=== PATIENT | male | born 1995 | race Caucasian/White ===

== ENCOUNTER 2019-11-06 18:32 | Emergency (ER) | payer OTHER ==
[~2019-11-06] VITALS: Ht 172.7 cm; Wt 81.7 kg
[2019-11-06 18:53] VITALS: BP 120/66
--- NOTE | 2019-11-08 09:00 | EKG ---
[facility] [place] [address] ELECTROCARDIOGRAM REPORT Name: RACHEL JAIN Room #: DEP MCecilyRCecily#: [id number] Admission: 11/06/19 Attend Phys: Discharge: 11/06/19 Date of : [birth year] Report #: [id number] THIS REPORT FOR: cc: FAM - No family physician/PCP FAM - No family physician/PCP Theo Franco MD [facility] THIS REPORT FOR: //name// [facility] ED Test Date: 2019-11-06 Test Time: 18:47:23 Pat Name: RACHEL JAIN Department: Patient ID: [id number]- Room: Gender: M [employer] Liaison: [facility] : 1995 Requested By: John Stewart Order Number: [id number] MD: Theo Franco Measurements Intervals [place] Rate: 77 P: 66 [place]: 149 QRS: 74 QRSD: 87 T: 65 QT: 356 QTc: 403 Interpretive Statements Sinus rhythm ST elevation suggests early repolarization No previous ECG available for comparison Electronically Signed On 11-08-2019 9:00:36 CDT by Theo Franco [email or web address] <ELECTRONICALLY SIGNED> By: Theo Franco MD, [facility] 11/08/19 0900 [id number] Theo Franco MD, FACC /EPI
== END 2019-11-06 19:02 | disposition home or self-care (01) ==
LOC: ER 18:32
DX: R06.02 Shortness of breath (principal); R07.89 Other chest pain